=== PATIENT | female | born 1945 | race Caucasian/White ===

== ENCOUNTER → 2017-02-17 | Outpatient (CLI) | payer MEDICARE, OTHER | END | disposition home or self-care (01) | LOC: GMAB 10:12 | PROVIDERS: ATTEND Family Medicine | DX: I10 Essential (primary) hypertension (principal) ==

== ENCOUNTER → 2017-06-14 | Outpatient (CLI) | payer MEDICARE, OTHER ==
--- NOTE | 2017-06-19 15:39 | MAM ---
EXAM DESCRIPTION: 3D Screening BILATERAL : Digital Mammography. CLINICAL HISTORY: 71 years Female SCREENING . No complaints. Remote family history of breast cancer. Postmenopausal. Has taken HRT 5 or more years ago. Prior right lumpectomy.. COMPARISON: 2-D digital screening bilateral studies on 05/13/2015 and 04/10/2014.. Report from prior examination also reviewed. TECHNIQUE: Bilateral CC and MLO projection full-field images, 3-D tomosynthesis digital mammographic technique. Also bilateral synthesized CC/ MLO full-field images. CAD not utilized. FINDINGS: The breast parenchymal density pattern is: Heterogeneously dense breast tissue, which may obscure small masses. No skin thickening or nipple retraction bilateral axillary lymph nodes. Bilateral solitary microcalcifications. Small group of microcalcifications mostly round, at the 900 clock position of the posterior third of the left breast. Stable since the prior study. No focal, stellate mass or density, focal asymmetry , and no suspicious microcalcifications bilaterally. Stable mammograms compared to prior study, taking into account differences in mammographic technique IMPRESSION: BI-RADS CATEGORY: 2 - BENIGN FINDINGS. FOLLOW UP: Routine digital bilateral screening, one year interval from June 2017. Written communication explaining the IMPRESSION and follow-up, will be mailed to the patient and referring health care provider. According to the [employer], yearly mammograms are recommended starting at age 40 and continuing as long as a woman is in good health. Any breast change noted on a breast self-exam should be reported promptly to the patient's healthcare provider. Breast MRI is recommended for women with an approximately 20-25% or greater lifetime risk of breast cancer, including women with a strong family history of breast or ovarian cancer and women who have been treated for Hodgkin's disease. A negative mammographic report should not delay tissue diagnosis in patients with significant clinical history or physical findings. Extremely dense breast tissue limits the sensitivity of digital mammography. Electronically signed by: Micky Isabel MD 06/19/2017 3:38 PM GEOGRAPHIC INFORMATION SCIENTIST
== END ==
LOC: MAMMO 16:33
PROVIDERS: ATTEND Family Medicine
DX: Z12.31 Encounter for screening mammogram for malignant neoplasm of breast (principal)
CPT/HCPCS: 77063; G0202

== ENCOUNTER → 2017-10-12 | Outpatient (CLI) | payer MEDICARE, OTHER | LOC: RESP 10:50 | PROVIDERS: ATTEND Family Medicine | DX: R00.1 Bradycardia, unspecified (principal); R00.0 Tachycardia, unspecified; I10 Essential (primary) hypertension ==

== ENCOUNTER → 2018-03-19 | Outpatient (CLI) | payer MEDICARE, OTHER | LOC: GMAE 10:41 | PROVIDERS: ATTEND Family Medicine | DX: I10 Essential (primary) hypertension (principal) ==

== ENCOUNTER → 2018-06-19 | Outpatient (CLI) | payer MEDICARE, OTHER ==
--- NOTE | 2018-06-20 17:23 | MAM ---
EXAM DESCRIPTION: 3D Screening BILATERAL : Digital Mammography. CLINICAL HISTORY: 72 years Female SCREEN . No complaints or personal history of breast cancer. Maternal grandmother with breast cancer. Childbirth. HRT 5 or more years ago. Mass removed from right breast.. Lifetime risk of developing breast cancer (Tyrer-Cuzick model)(%): 6.5. COMPARISON: bilateral screening digital breast tomosynthesis 06/14/2017. TECHNIQUE: Bilateral CC and MLO projection full-field images, digital tomosynthesis mammographic technique. Bilateral digital 2-D full-field MLO images. CAD not available for tomosynthesis or 2-D images. FINDINGS: The breast parenchymal density pattern is: Heterogeneously dense breast tissue, which may obscure small masses. No skin thickening or nipple retraction. Bilateral axillary lymph nodes. Bilateral solitary microcalcifications. No new focal, stellate mass or density, focal asymmetry , and no suspicious microcalcifications bilaterally. Stable mammograms compared to prior study. IMPRESSION: Benign exam. BIRAD CATEGORY: 2 BENIGN FINDINGS. RECOMMENDATIONS: FOLLOW UP: Routine digital bilateral mammographic screening, one year interval from June 2018. Written communication explaining the IMPRESSION and follow-up, will be mailed to the patient and referring health care provider. According to the [employer], yearly mammograms are recommended starting at age 40 and continuing as long as a woman is in good health. Any breast change noted on a breast self-exam should be reported promptly to the patient's healthcare provider. Breast MRI is recommended for women with an approximately 20-25% or greater lifetime risk of breast cancer, including women with a strong family history of breast or ovarian cancer and women who have been treated for Hodgkin's disease. A negative mammographic report should not delay tissue diagnosis in patients with significant clinical history or physical findings. Extremely dense breast tissue limits the sensitivity of digital mammography. Electronically signed by: Micky Isabel MD 06/20/2018 5:22 PM AUTO BODY REPAIRMAN
== END ==
LOC: MAMMO 10:00
PROVIDERS: ATTEND Family Medicine
DX: Z12.31 Encounter for screening mammogram for malignant neoplasm of breast (principal)

== ENCOUNTER → 2018-07-04 | Outpatient (CLI) | payer MEDICARE, OTHER ==
--- NOTE | 2018-07-04 11:08 | US ---
EXAM DESCRIPTION: Soft Tissue,Extremity: ULTRASOUND. CLINICAL HISTORY: 72 years Female RT AC SKIN MASS. One week duration. Palpable. COMPARISON: None Available. TECHNIQUE: Transcutaneous scanning: Scott-scale and Doppler modes. FINDINGS: Isoechoic to slightly hypoechoic homogeneous soft tissue mass in the subcutaneous adipose tissue abutting the right antecubital veins with minimal vascularity on the margin and normal vascularity in the venous structures. Dimensions are 2.5 x 1.6 x 0.7 cm. Contralateral left antecubital region is unremarkable. 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 Electronically signed by: Micky Isabel MD 07/04/2018 11:07 AM FLIGHT CREW ORDNANCEMAN
== END ==
LOC: US 09:30
PROVIDERS: ATTEND Nurse Practitioner Family
DX: D17.21 Benign lipomatous neoplasm of skin and subcutaneous tissue of right arm (principal)

== ENCOUNTER → 2019-03-28 | Outpatient (CLI) | payer MEDICARE, OTHER ==
--- NOTE | 2019-03-30 18:36 | US ---
US THYROID CLINICAL STATEMENT: NONTOXIC SINGLE THYROID NODULE. No palpable mass. No previous thyroid surgery. No medical therapy. COMPARISON: None TECHNIQUE: Transcutaneous scanning, grayscale and Doppler modes. FINDINGS: Size right thyroid lobe: 4.7 x 1.7 x 1.7 cm Size left thyroid lobe: 4.6 x 1.7 x 1.6 cm Size isthmus: 0.4 cm Estimated total number of nodules greater than or equal to 1 cm: None. No solid dominant mass or distinct cyst. No parenchymal edema or large calcifications, or abnormal vascularity. Nodule 1: Size: 0.7 x 0.5 x 0.4 cm Location: Isthmus Mid. Right. Composition: solid or almost completely solid: 2 points Echogenicity: hypoechoic: 2 points Shape: wider than tall: 0 points Margins: smooth: 0 points Echogenic foci: none: 0 points ACR Total Points: 4; ACR TI-RADS risk category: TR4 - moderately suspicious nodule. Nodule 2: Size: 0.7 x 0.6 x 0.4 cm Location: Left Mid Composition: solid or almost completely solid: 2 points Echogenicity: hypoechoic: 2 points Shape: wider than tall: 0 points Margins: ill-defined: 0 points Echogenic foci: none: 0 points ACR Total Points: 4; ACR TI-RADS risk category: TR4 - moderately suspicious nodule. Nodule 3: Size: 0.7 x 0.7 x 0.4 cm Location: Right Lower Composition: solid or almost completely solid: 2 points Echogenicity: hypoechoic: 2 points Shape: wider than tall: 0 points Margins: smooth: 0 points Echogenic foci: none: 0 points ACR Total Points: 4; ACR TI-RADS risk category: TR4 - moderately suspicious nodule. Nodule 4: Size: 0.5 x 0.5 x 0.4 cm Location: Right Mid Composition: solid or almost completely solid: 2 points Echogenicity: hypoechoic: 2 points Shape: wider than tall: 0 points Margins: smooth: 0 points Echogenic foci: none: 0 points ACR Total Points: 4; ACR TI-RADS risk category: TR4 - moderately suspicious nodule. The soft tissue around the thyroid gland shows no dominant solid mass or distinct cyst. IMPRESSION: 1. Nodule 1: ACR TI-RADS 2017 Category TR4. Recommend: No further follow-up.. Recommendations based upon [employer] Best Practice recommendations and ACR TI-RADS 2017 guidelines. Please see below*. 2. Nodule 2: ACR TI-RADS 2017 Category TR4. Recommend: No further follow-up. 3. Nodule 3: ACR TI-RADS 2017 Category TR4. Recommend: No further follow-up. 4. Nodule 4: ACR TI-RADS 2017 Category TR4. Recommend: No further follow-up. Soft tissue around the thyroid gland is unremarkable. *ACR TI-RADS 2017 Recommendations for imaging follow-up of nodules: TR1: No FNA or follow up TR2: No FNA or follow up TR3: FNA if >/= 2.5 cm, follow up if 1.5 - 2.4 cm in 1, 3, and 5 years TR4: FNA if >/= 1.5 cm, follow up if 1.0 - 1.4 cm in 1, 2, 3, and 5 years TR5: FNA if >/= 1.0 cm, follow up if 0.5 - 0.9 cm every year for 5 years ACR TI-RADS recommends that no more than two nodules with the highest ACR TI-RADS total point should be biopsied and no more than four nodules should be followed. These recommendations do not apply to patients with increased risk for thyroid cancer or patients with symptomatic thyroid disease. Electronically signed by: Micky Isabel MD 03/30/2019 6:34 PM CDT
== END ==
LOC: US 12:50
PROVIDERS: ATTEND Family Medicine
DX: E04.2 Nontoxic multinodular goiter (principal)

== ENCOUNTER → 2019-06-20 | Outpatient (CLI) | payer MEDICARE, OTHER ==
--- NOTE | 2019-06-21 16:24 | MAM ---
EXAM DESCRIPTION: 3D Screening BILATERAL : Digital Mammography. CLINICAL HISTORY: 73 years Female SCREENING . No complaints. No personal history of breast cancer. Remote family history of breast cancer. In RT age 16. Childbirth age 27. Postmenopausal age 47. HRT 5 or more years ago. Benign right breast biopsy. Lifetime risk of developing breast cancer (Tyrer-Cuzick model)(%): 6.2. COMPARISON: Bilateral screening digital breast tomosynthesis June 2018 and June 2017. TECHNIQUE: Bilateral CC and MLO projection full-field images, digital tomosynthesis mammographic technique. Bilateral digital 2-D full-field MLO images. CAD not available for tomosynthesis or 2-D images. FINDINGS: The breast parenchymal density pattern is: Heterogeneously dense breast tissue, which may obscure small masses. No skin thickening or nipple retraction. Group of microcalcifications in the upper mid left breast stable. Bilateral axillary lymph nodes and bilateral vascular calcifications. No new focal, stellate mass or density, focal asymmetry , and no suspicious microcalcifications bilaterally. Stable mammograms compared to prior study. IMPRESSION: Benign exam. BIRAD CATEGORY: 2 BENIGN FINDINGS. RECOMMENDATIONS: FOLLOW UP: Routine digital bilateral mammographic screening, one year interval from June 2019. Written communication explaining the IMPRESSION and follow-up, will be mailed to the patient and referring health care provider. According to the [employer], yearly mammograms are recommended starting at age 40 and continuing as long as a woman is in good health. Any breast change noted on a breast self-exam should be reported promptly to the patient's healthcare provider. Breast MRI is recommended for women with an approximately 20-25% or greater lifetime risk of breast cancer, including women with a strong family history of breast or ovarian cancer and women who have been treated for Hodgkin's disease. A negative mammographic report should not delay tissue diagnosis in patients with significant clinical history or physical findings. Extremely dense breast tissue limits the sensitivity of digital mammography. Electronically signed by: Micky Isabel MD 06/21/2019 4:22 PM NETWORK SUPPORT ADMINISTRATOR
== END ==
LOC: MAMMO 15:25
PROVIDERS: ATTEND Family Medicine
DX: Z12.31 Encounter for screening mammogram for malignant neoplasm of breast (principal)

== ENCOUNTER → 2020-05-06 | Outpatient (CLI) | payer MEDICARE, OTHER | LOC: GMAE 11:01 | PROVIDERS: ATTEND Family Medicine | DX: I10 Essential (primary) hypertension (principal); E78.2 Mixed hyperlipidemia ==

== ENCOUNTER 2020-06-15 05:31 | Day surgery (SDC) | payer MEDICARE, OTHER ==
[2020-06-15] MEDS ORDERED: LIDOCAINE 1% 10 ML VIAL INJ ONE ×4 (07:29→10:14)
[2020-06-15] MEDS ORDERED: BUPIVACAINE 0.5% 30 ML VIAL INJ ONE ×5 (07:29→10:14)
[2020-06-15] MEDS ORDERED: BETAMETHASONE ACETATE/BETAMETH 6 MG/ML VIAL IM ONE ×5 (07:55→10:14)
[2020-06-15] MEDS ORDERED: DEXAMETHASONE INJ 10 MG/ML VIAL ONE (07:59)
== END 2020-06-15 10:38 | disposition home or self-care (01) ==
LOC: AMB 05:31
PROVIDERS: ATTEND Family Medicine Sports Medicine
DX: M54.5 Low back pain (principal); M47.896 Other spondylosis, lumbar region

== ENCOUNTER → 2020-06-24 | Outpatient (CLI) | payer MEDICARE, OTHER ==
--- NOTE | 2020-07-01 18:43 | MAM ---
EXAM DESCRIPTION: 3D Screening BILATERAL : Digital Mammography. CLINICAL HISTORY: 74 years Female SCREENING . History and lifetime risk information from prior examination: No complaints. Remote family history of breast cancer. Menarche age 16. Childbirth age 27. Postmenopausal age 47. HRT fibroid is ago. Benign right breast biopsy.. Lifetime risk of developing breast cancer (Tyrer-Cuzick model)(%): 6.2. COMPARISON: Bilateral screening digital breast tomosynthesis June 2019 and June 2018. TECHNIQUE: Bilateral CC and MLO projection full-field images, digital tomosynthesis mammographic technique. Bilateral digital 2-D full-field MLO images. CAD available for 2-D images. FINDINGS: The breast parenchymal density pattern is: Heterogeneously dense breast tissue, which may obscure small masses. Vascular calcifications. Solitary microcalcifications. Coarse calcifications. Groups of benign-type microcalcifications. Lungs are associated with a soft tissue density which is most likely a degenerating fibroadenoma in the lateral anterior right breast. Axillary nodes. Group of microcalcifications in the posterior third of the left breast has an unusual appearance on the CC images but not well seen on the MLO images. Not well seen on the prior study. No skin thickening or nipple retraction No new focal, stellate mass or density, focal asymmetry , and no suspicious microcalcifications right breast. IMPRESSION: BI-RADS CATEGORY: 0 - INCOMPLETE- Need additional imaging evaluation. RECOMMENDATIONS: FOLLOW-UP: Recall for additional imaging: Full field left breast 2-D and tomosynthesis imaging in the lateral medial projection. Repeat full field left MLO 2D and tomosynthesis images. Orthogonal spot magnification in the region of interest. Optional directed ultrasound depending on diagnostic breast imaging findings.. Written communication concerning the IMPRESSION and Follow-up, will be mailed to the patient and referring health care provider. Electronically signed by: Micky Isabel MD 07/01/2020 6:42 PM DISPATCH SUPERVISOR
== END ==
LOC: MAMMO 09:57
PROVIDERS: ATTEND Family Medicine
DX: Z12.31 Encounter for screening mammogram for malignant neoplasm of breast (principal)

== ENCOUNTER 2020-06-29 05:36 | Day surgery (SDC) | payer MEDICARE, OTHER ==
[2020-06-29] MEDS ORDERED: LIDOCAINE 1% 10 ML VIAL INJ ONE ×2 (07:14→08:23)
[2020-06-29] MEDS ORDERED: BUPIVACAINE 0.5% 30 ML VIAL INJ ONE ×2 (07:14→08:23)
[2020-06-29] MEDS ORDERED: BETAMETHASONE ACETATE/BETAMETH 6 MG/ML VIAL IM ONE ×2 (07:14→08:23)
== END 2020-06-29 08:52 | disposition home or self-care (01) ==
LOC: AMB 05:36
PROVIDERS: ATTEND Family Medicine Sports Medicine
DX: M54.5 Low back pain (principal); M47.896 Other spondylosis, lumbar region; E78.5 Hyperlipidemia, unspecified; I10 Essential (primary) hypertension; R73.03 Prediabetes; Z88.6 Allergy status to analgesic agent; Z88.5 Allergy status to narcotic agent; Z88.8 Allergy status to other drugs, medicaments and biological substances; Z79.899 Other long term (current) drug therapy

== ENCOUNTER → 2020-07-13 | Outpatient (CLI) | payer MEDICARE, OTHER ==
--- NOTE | 2020-07-13 13:09 | MAM ---
EXAM DESCRIPTION: Bilateral (accession [id number]), Left (accession [id number]): Ultrasound CLINICAL HISTORY: 74 yearsFemaleABNORMAL MAMMO abnormal calcifications in the left breast. COMPARISON: Bilateral screening digital breast tomosynthesis June 24, June 2019 and June 2018. TECHNIQUE: Left breast LM, CC, and MLO projection full-field images, digital tomosynthesis technique. Left breast 2-D digital full-field images: LM, CC, and MLO injections. CC and LM spot magnification of the region of interest left breast. CAD available for 2-D images.. Transcutaneous scanning of the left breast utilizing mccartney-scale and Doppler modes. Scanning performed by the surveyor geophysical prospecting ; observation by Dr. Isabel. FINDINGS: The breast parenchymal density pattern is: Heterogeneously dense breast tissue, which may obscure small masses. Multiple groups of heterogeneous amorphic microcalcifications are seen. Posterior third of the breast 7:00 and 6:00. Some of the calcifications appear to be in rows and also rows that are branching. Not associated with a focal, irregular, stellate mass or density. No skin thickening or nipple retraction Ultrasound: Scanning of the posterior third of the breast at the 6:00 location. Mixture of fibroglandular and fatty tissues. Small regions of posterior shadowing, could represent the calcifications, but no specific echogenic calcifications are seen. No dominant soft tissue mass, no fluid collection, no cyst, and no large calcifications. IMPRESSION: BI-RADS Category 4: SUSPICIOUS. Sub-category 4A - Low Suspicion For Malignancy. RECOMMENDATION: Surgical consultation and tissue diagnosis if there are no clinical contraindications. The FINDINGS and FOLLOW-UP plan were reviewed in person with the patient following the examination. Written communication explaining the IMPRESSION and FOLLOW-UP will be mailed to the patient and referring care provider. CRITICAL COMMUNICATION: The critical value was communicated directly by Dr. Isabel via phone call, with Dr. Adrian Pascal, at approximately 1230 hours, on July 13, 2020. CRITICAL COMMUNICATION: The critical value was communicated by text message from Dr. Isabel at 1228 hours, on July 13, 2020, to Dr. Rahul He with text acknowledgment by Dr. He at approximately 1236 hours, on same date. Electronically signed by: Micky Isabel MD 07/13/2020 1:06 PM [facility]
== END ==
LOC: MAMMO 11:01
PROVIDERS: ATTEND Family Medicine
DX: R92.8 Other abnormal and inconclusive findings on diagnostic imaging of breast (principal)
CPT/HCPCS: 76641; 77066; G0279

== ENCOUNTER 2020-08-13 05:39 | Day surgery (SDC) | payer MEDICARE, OTHER ==
[2020-08-13] MEDS ORDERED: LACTATED RINGERS 1,000 ML ONE (06:55)
[2020-08-13] MEDS ORDERED: ceFAZolin SODIUM 1 GM VIAL ONE (07:00)
[2020-08-13] MEDS ORDERED: DEXAMETHASONE INJ 10 MG/ML VIAL ONE (07:00)
[2020-08-13] MEDS ORDERED: PROPOFOL 200 MG/20 ML VIAL IV ONE (07:00)
[2020-08-13] MEDS ORDERED: DEXMEDETOMIDINE HCL 200 MCG/2 ML INJ IV ONE (11:08)
[2020-08-13] MEDS ORDERED: KETAMINE HCL 100 MG/ML VIAL ONE (11:09)
[2020-08-13] MEDS ORDERED: fentaNYL CITRATE INJ 50 MCG/ML 2 ML AMP ONE (11:09)
[2020-08-13] MEDS ORDERED: MIDAZOLAM INJ 2 MG/2 ML VIAL ONE (11:09)
[2020-08-13] MEDS: BUPIVACAINE 0.25% W/EPI 50 ML VIAL INJ ONE ×2 (11:50→11:55)
[2020-08-13] MEDS ORDERED: LACTATED RINGERS 600 ML IVS ONE (12:45)
--- NOTE | 2020-08-13 13:16 | OP ---
DATE OF PROCEDURE: 08/13/20 PREOPERATIVE DIAGNOSIS: 1. Ductal carcinoma in situ, left breast. POSTOPERATIVE DIAGNOSIS: 1. Ductal carcinoma in situ, left breast. PROCEDURE: 1. Needle localized wide local excision, left breast. SURGEON: Danilo He MD. ANESTHESIA: General, Christopher Carrillo CRNA. FINDINGS: Preoperative wire placement was reviewed with the radiologist. The area of concern is quite a widespread diffuse microcalcifications. The exact biopsy site with the core was not exactly certain as the clip had migrated just over 4 cm as seen on the report, so wires were placed on 2 separate sites, one inferior and one lateral, in essence attempting to surround the microcalcifications. It was marked for orientation with the inferior wire being inferior to the calcifications and the medial wire being a little more superior with the majority of the calcifications anterior to both wires. We planned our strategy based on that. I also explained to the patient preoperatively that given the diffuse nature, if these other areas of microcalcifications are indeed part of the DSIS process, if it is difficult to get a positive margin today or on a subsequent biopsy, a simple mastectomy may be recommended. She understood this and she is interested in reconstruction if that is necessary. PROCEDURE: The patient was brought to the Operating Suite in supine position. General anesthesia was induced. She was prepped and draped in sterile fashion. Examining the two wires in the direction which they were heading, a single radial incision was made medial and inferomedially with plans to incorporate in the incision if mastectomy is necessary. The subcutaneous tissues were taken down. We then dug inferiorly to the inferior wire, which was primarily posterior. Once we found that, we went posterior to it. It was not in the bulk and came out of the specimen, so that wire was simply discarded at this point, but we went posterior, anterior and a little bit medial to that and then across around more to the medial side encountering the medial wire at its thin portion and again trying to go posterior with that, but favoring the anterior tissue to that wire and a little bit medial as well. In all, a significant specimen was taken. It was then marked with silk sutures, short superior, long lateral and double for the deep margin. Another small piece of tissue was taken that identified deep and medial. It appeared like normal breast tissue, but it was a little whitened and just took that to see if there was any additional disease that would be left behind. At that point, the area was irrigated. We took a good amount of time to ensure proper hemostasis. The wound was then closed in 2 layers of absorbable suture and dressing applied. She tolerated the procedure and was awakened and taken to Recovery to be discharged. #[id number] cc: Raj Pascal MD MTDYoon
[2020-08-13] MEDS ORDERED: ACETAMINOPHEN 500 MG TAB PO ONE (13:20)
[2020-08-13] MEDS ORDERED: ACETAMINOPHEN 500 MG TAB ONE (13:20)
[2020-08-13 14:25] VITALS: BP 125/74; TEMP 98.6; O2SAT 96
--- NOTE | 2020-08-13 15:42 | MAM ---
EXAM DESCRIPTION: Breast-Needle Localization Lt Digital Mammography CLINICAL HISTORY: 74 years FemaleCALCIFICATIONS-ABNORMAL MAMMO COMPARISON: Bilateral screening digital breast tomosynthesis June 2020. Bilateral diagnostic digital breast tomosynthesis and directed breast ultrasound July 2020. TECHNIQUE: The procedure was performed by Dr. Isabel. Procedure explained to the patient with risks and benefits. The patient gave verbal and written consent. The area for localization was identified in the middle third left breast 8 cm from the nipple at 6:00. A needle and wire placement was initially performed utilizing sterile technique from the medial aspect of the breast, but the wire/hook migrated superior and lateral to the region of interest. Decision was made to insert a second wire. Left breast was placed in the digital mammographic unit in the craniocaudal position, utilizing the special compression paddle with localizing window over the inferior breast. Craniocaudal image shows the diffuse calcifications of interest. Sterile preparation. Intradermal injection of sodium bicarbonate and standard strength Xylocaine. The 5 mm [place] Mammalok system was introduced through the paddle window into the mid inferior left breast. Repeat CC image, with needle in place. The breast was moved into the lateral medial position; repeat images after adjustment showing proper needle depth. Continuing sterile technique, the needle was withdrawn, leaving hook wire in place. Repeat lateral medial image. Repeat craniocaudal image with wire only. The digital images were labeled for surgical guidance. The patient tolerated the procedure well with no immediate complications. FINDINGS: Images show the #1 wire hook lateral to the superior group of abnormal microcalcifications. The # 2 wire hook is located within the lower groups of microcalcifications, posterior to the main groups. IMPRESSION: Successful mammographic guided needle wire localization of left breast abnormal microcalcifications by Dr. Isabel. The procedure results were discussed and images were reviewed with Dr. He, prior to excisional biopsy. Digital mammography of the biopsy specimen to follow excisional biopsy. Electronically signed by: Micky Isabel MD 08/13/2020 3:41 PM [facility]
== END 2020-08-13 14:05 | disposition home or self-care (01) ==
LOC: AMB 05:39
PROVIDERS: ATTEND Surgery
DX: D05.12 Intraductal carcinoma in situ of left breast (principal); I10 Essential (primary) hypertension; E78.00 Pure hypercholesterolemia, unspecified; Z88.5 Allergy status to narcotic agent; Z88.6 Allergy status to analgesic agent; Z83.42 Family history of familial hypercholesterolemia; Z82.49 Family history of ischemic heart disease and other diseases of the circulatory system; Z79.899 Other long term (current) drug therapy
CPT/HCPCS: 00400; 19120; 88307; 88342; 88360; J0690; J1100; J2250; J3010; J3490; J7120